=== PATIENT | female | born 1990 | race Caucasian/White ===

== ENCOUNTER 2021-12-27 12:56 | Emergency (ER) | payer BC ==
[2021-12-27 13:27] VITALS: BP 116/77; PULSE 66; RESP 16; TEMP 98.2; BMI 20.5
[2021-12-27] MEDS ORDERED: IBUPROFEN 400 MG TABLET (FP) PO ONE ×2 (14:53→15:00)
[2021-12-27 15:06] LABS: HEMOGLOBIN 13.3 G/dL (10.7-15.3); MEAN CELL VOLUME 88.5 fl (80-96); MEAN PLT VOLUME 9.3 fl (7.5-11.1); PLATELET COUNT 128.4 10^3/uL (134-434); RBC 4.29 10^6/uL (3.60-5.2); RDW 13.6 % (11.6-15.6); WHITE BLOOD COUNT 5.7 10^3/uL (4.0-10.8)
[2021-12-27 15:07] LABS: ALBUMIN 4.1 g/dl (3.4-5.0); ALK PHOS 51 U/L (45-117); ANION GAP 5 MMOL/L (8-16); BILIRUBIN,TOTAL 1.4 mg/dl (0.2-1); CALCIUM 8.9 mg/dl (8.5-10); CHLORIDE 104 mmol/L (98-107); CO2 26 mmol/L (21-32); CREATININE 0.6 mg/dl (0.55-1.3); GLUCOSE,RANDOM 90 mg/dl (74-106); SGOT/AST 18 U/L (15-37); SGPT/ALT 15 U/L (13-61); SODIUM 135 mmol/L (136-145); TOT PROT 6.6 g/dl (6.4-8.2)
[2021-12-27 15:13] LABS: PLATELET ESTIMATE SLT DECREASE
== END 2021-12-27 15:31 | disposition home or self-care (01) ==
LOC: FER 12:56
DX: R07.9 Chest pain, unspecified (principal)
CPT/HCPCS: 36415; 80053; 81025; 84484; 85027; 93005; 99284-25